=== PATIENT | female | born 1935 | race African-American/Black ===

== ENCOUNTER 2018-06-04 07:25 | Inpatient (IN) | payer OTHER, MEDICAID ==
[~2018-06-04] VITALS: Ht 167.6 cm; Wt 81.3 kg
[~2018-06-04 07:25] MED LIST: ACET-3 PO; ASPI81CH43 GT; ASPI81TA27 PO; ATOR20TA PO; CHOL20007 PO; DICL50TA4; LEV100T PO; LEVO75TA42 PO; LEVO88TA36 PO; NIFE90TA25 PO; NIFE90TA30 PO; OMEG500C; PROB1CAP PO; PROP60CA34 PO; PROP80CA40 PO; SIMV-8 PO
[2018-06-04 08:22] LABS: Urine Bacteria FEW /hpf (None Seen); Urine Blood Negative /uL (Negative); Urine Specific Gravity 1.006 (1.001-1.035); Urine WBC 2 /hpf (0 - 5)
[2018-06-04 08:24] LABS: Basophils # (auto) 0.2 uL; Eosinophils # (auto) 0.2 uL; Eosinophils % (auto) 2.9 % (0.0-7.0); Hematocrit 41.4 % (36.0-46.0); Hemoglobin 13.8 g/dL (12.2-16.2); Lymphocytes # (auto) 0.9 uL; Lymphocytes % (auto) 17.2 % (10.0-50.0); Mean Corpuscular Hemoglobin 29.7 pg (28.0-32.0); Mean Corpuscular Hgb Conc. 33.3 g/dL (32.0-36.0); Mean Corpuscular Volume 89.1 fL (80.0-100.0); Monocytes # (auto) 0.3 uL; Monocytes % (auto) 6.4 % (0.0-12.0); Neutrophils # (auto) 3.6 uL; Neutrophils % (auto) 69.5 % (37.0-80.0); Nucleated Red Blood Cells % 0.1 %; Platelet Count (auto) 191 10^3/uL (140-450); Red Blood Cells 4.65 10^6/uL (4.0-5.20); Red Cell Distribution Width 15.2 % (11.8-14.3); White Blood Cell 5.2 10^3/uL (4.4-10.8)
[2018-06-04] MEDS ORDERED: cloNIDine HCL 0.1 MG TAB PO ONE (08:30)
[2018-06-04 08:34] LABS: INR 0.91 (0.9-1.15); Partial Thromboplastin Time 33.6 sec (23.78-33.04); Prothrombin Time 9.8 sec (9.27-12.13)
[2018-06-04 08:39] LABS: Alanine Aminotransferase 19 U/L (13-56); Albumin 3.4 g/dL (3.4-5.0); Anion Gap 10 (5-15); Aspartate Aminotransferase 21 U/L (15-37); BUN/Creatinine Ratio 10.9; Blood Urea Nitrogen 12 mg/dL (7-18); Calcium 9.2 mg/dL (8.5-10.1); Carbon Dioxide 23 mmol/L (21-32); Chloride 107 mmol/L (98-107); GFR African American 61 mL/min; GFR Non-African American 51 mL/min; Glucose 117 mg/dL (74-106); Potassium 4.1 mmol/L (3.5-5.1); Sodium 140 mmol/L (136-145)
[2018-06-04 08:44] LABS: Alkaline Phosphatase 106 U/L (45-117); Bilirubin, Total 0.4 mg/dL (0.2-1.0); Total Protein 8.6 g/dL (6.4-8.2)
[2018-06-04] MEDS ORDERED: ACETAMINOPHEN 325 MG TAB PO PRN (10:15)
[2018-06-04] MEDS ORDERED: ASPirin-EC 81 mg tab PO ONE (10:15)
[2018-06-04] MEDS ORDERED: PROPRANOLOL HCL 20 MG TAB PO ONE (10:15)
[2018-06-04] MEDS ORDERED: NITROGLYCERIN 0.4 MG SL TAB SL PRN (10:15)
[2018-06-04] MEDS ORDERED: MORPHINE SULF INJ 2 MG/ML SYRINGE 1ML IV PRN ×2 (10:15)
[2018-06-04] MEDS ORDERED: DOCUSATE SOD 100 MG CAP PO PRN (10:15)
[2018-06-04] MEDS ORDERED: LEVOFLOXACIN 500MG 100 ML IV ONE (10:15)
[2018-06-04] MEDS ORDERED: NIFEdipine ER 30 MG TAB PO ONE (10:15)
[2018-06-04] MEDS ORDERED: DEXTROSE (50%) 50ML SYRG IV PRN (10:15)
[2018-06-04] MEDS ORDERED: OXYCODONE W/ ACETAMINOPHEN 5/325MG TABLET PO PRN (10:15)
[2018-06-04] MEDS ORDERED: cloNIDine HCL 0.1 MG TAB PO PRN (10:15)
[2018-06-04] MEDS: FAMOTIDINE 20 MG TAB PO SCH (10:33)
[2018-06-04] MEDS: ENOXAPARIN SOD 40 MG/0.4 ML SYRINGE SC SCH (10:34)
[2018-06-04] MEDS: SODIUM CHLOR 0.9% PF (SALINE LOCK) 10ML VIAL/SYR IV SCH ×2 (11:42→21:53)
[2018-06-04] MEDS: InsuLIN REG 1unit/0.01ml Soln (100units/ml) SC SCH ×3 (11:52→21:53)
[2018-06-04] MEDS: ACCU-CHEK COMFORT CURVE STRIP VI SCH ×3 (11:52→21:53)
[2018-06-04 17:20] VITALS: BP 121/67
[2018-06-04 19:27] LABS: Folate (Folic Acid) > 24.00 ng/mL (5.38-24)
[2018-06-04 20:00] VITALS: BP 142/74
[2018-06-04 21:26] VITALS: BP 142/74
[2018-06-04] MEDS: ATORVASTATIN 20 MG TAB PO SCH (21:53)
[2018-06-04] MEDS ORDERED: FAMOTIDINE 20 MG TAB PO SCH (22:00)
[2018-06-05 04:45] VITALS: BP 145/70
[2018-06-05] MEDS: SODIUM CHLOR 0.9% PF (SALINE LOCK) 10ML VIAL/SYR IV SCH ×3 (06:15→21:24)
[2018-06-05] MEDS: ACCU-CHEK COMFORT CURVE STRIP VI SCH ×3 (06:39→21:28)
[2018-06-05] MEDS: InsuLIN REG 1unit/0.01ml Soln (100units/ml) SC SCH ×3 (06:39→21:28)
[2018-06-05 06:59] LABS: Basophils # (auto) 0.1 uL; Basophils % (auto) 1.3 % (0.0-2.0); Eosinophils # (auto) 0.1 uL; Eosinophils % (auto) 2.5 % (0.0-7.0); Hematocrit 34.1 % (36.0-46.0); Hemoglobin 11.4 g/dL (12.2-16.2); Lymphocytes # (auto) 1.2 uL; Lymphocytes % (auto) 27.4 % (10.0-50.0); Mean Corpuscular Hemoglobin 29.4 pg (28.0-32.0); Mean Corpuscular Hgb Conc. 33.4 g/dL (32.0-36.0); Monocytes # (auto) 0.5 uL; Neutrophils # (auto) 2.6 uL; Neutrophils % (auto) 57.8 % (37.0-80.0); Nucleated Red Blood Cells % 0.1 %; Platelet Count (auto) 160 10^3/uL (140-450); Red Blood Cells 3.88 10^6/uL (4.0-5.20); Red Cell Distribution Width 15.1 % (11.8-14.3); White Blood Cell 4.5 10^3/uL (4.4-10.8)
[2018-06-05 07:18] LABS: Albumin 2.8 g/dL (3.4-5.0); BUN/Creatinine Ratio 10.8; Bilirubin, Total 0.4 mg/dL (0.2-1.0); Calcium 8.9 mg/dL (8.5-10.1); Potassium 3.8 mmol/L (3.5-5.1); Total Protein 6.8 g/dL (6.4-8.2)
[2018-06-05 08:38] VITALS: BP 133/69
[2018-06-05] MEDS: NIFEdipine ER 30 MG TAB PO SCH (10:00)
[2018-06-05] MEDS: ASPirin-EC 81 mg tab PO SCH (10:33)
[2018-06-05] MEDS: LEVOFLOXACIN 500MG 100 ML IV SCH (10:34)
[2018-06-05] MEDS: FAMOTIDINE 20 MG TAB PO SCH (10:34)
[2018-06-05] MEDS: PROPRANOLOL HCL 20 MG TAB PO SCH (10:34)
[2018-06-05] MEDS: MULTIPLE VITAMIN TAB PO SCH (10:34)
[2018-06-05] MEDS: ENOXAPARIN SOD 40 MG/0.4 ML SYRINGE SC SCH (10:35)
[2018-06-05 12:45] VITALS: BP 145/69
[2018-06-05 17:10] VITALS: BP 152/67
[2018-06-05] MEDS: ATORVASTATIN 20 MG TAB PO SCH (21:19)
[2018-06-05 21:45] VITALS: BP 134/69
[2018-06-05] MEDS ORDERED: TEMAZEPAM 15 MG CAP PO ONE (22:45)
[2018-06-06 04:52] VITALS: BP 144/79
[2018-06-06 05:59] LABS: Basophils # (auto) 0.1 uL; Basophils % (auto) 1.9 % (0.0-2.0); Eosinophils # (auto) 0.2 uL; Eosinophils % (auto) 4.1 % (0.0-7.0); Hematocrit 35.6 % (36.0-46.0); Hemoglobin 11.7 g/dL (12.2-16.2); Lymphocytes # (auto) 1.2 uL; Lymphocytes % (auto) 26.1 % (10.0-50.0); Mean Corpuscular Hemoglobin 28.8 pg (28.0-32.0); Mean Corpuscular Hgb Conc. 32.9 g/dL (32.0-36.0); Mean Corpuscular Volume 87.5 fL (80.0-100.0); Monocytes # (auto) 0.4 uL; Monocytes % (auto) 9.4 % (0.0-12.0); Neutrophils # (auto) 2.6 uL; Neutrophils % (auto) 58.5 % (37.0-80.0); Nucleated Red Blood Cells % 0.1 %; Platelet Count (auto) 171 10^3/uL (140-450); Red Blood Cells 4.06 10^6/uL (4.0-5.20); Red Cell Distribution Width 14.9 % (11.8-14.3); White Blood Cell 4.5 10^3/uL (4.4-10.8)
[2018-06-06 06:15] LABS: Calcium 9.5 mg/dL (8.5-10.1)
[2018-06-06 06:18] LABS: BUN/Creatinine Ratio 14.4
[2018-06-06] MEDS: ACCU-CHEK COMFORT CURVE STRIP VI SCH ×3 (06:39→18:22)
[2018-06-06] MEDS: InsuLIN REG 1unit/0.01ml Soln (100units/ml) SC SCH ×3 (06:39→11:30)
[2018-06-06] MEDS: SODIUM CHLOR 0.9% PF (SALINE LOCK) 10ML VIAL/SYR IV SCH ×2 (06:39→14:59)
[2018-06-06 08:09] VITALS: BP 149/70
[2018-06-06] MEDS: FAMOTIDINE 20 MG TAB PO SCH (10:00)
[2018-06-06] MEDS: PROPRANOLOL HCL 20 MG TAB PO SCH (10:00)
[2018-06-06] MEDS: LEVOFLOXACIN 500MG 100 ML IV SCH (10:07)
[2018-06-06] MEDS: ASPirin-EC 81 mg tab PO SCH (10:08)
[2018-06-06] MEDS: MULTIPLE VITAMIN TAB PO SCH (10:08)
[2018-06-06] MEDS: ENOXAPARIN SOD 40 MG/0.4 ML SYRINGE SC SCH (10:08)
[2018-06-06] MEDS: NIFEdipine ER 30 MG TAB PO SCH (10:09)
[2018-06-06 12:31] VITALS: BP 127/62
[2018-06-06 15:25] LABS: Alcohol, Urine < 3.0 mg/dL (0-5); Amphetamine Screen, Urine NEGATIVE (NEGATIVE); Barbiturate Scree,Urine NEGATIVE (NEGATIVE); Benzodiazephine Screen, Urine NEGATIVE (NEGATIVE); Cannabinoid Screen, Urine NEGATIVE (NEGATIVE); Cocaine Screen, Urine NEGATIVE (NEGATIVE); Opiate Scree,Urine NEGATIVE (NEGATIVE); Phencyclidine Screen, Urine NEGATIVE (NEGATIVE)
[2018-06-06 17:56] VITALS: BP 145/70
== END 2018-06-06 20:45 | disposition home or self-care (01) | DRG 64 ==
LOC: ER 07:25 → EDBD 07:25 → MERGE 07:26 → TELE 07:26 → TELE-WESTW 14:37
PROVIDERS: ADMIT Internal Medicine; ATTEND Internal Medicine
DX: I63.9 Cerebral infarction, unspecified (principal); G93.40 Encephalopathy, unspecified; N39.0 Urinary tract infection, site not specified; E44.0 Moderate protein-calorie malnutrition; G40.209 Localization-related (focal) (partial) symptomatic epilepsy and epileptic syndromes with complex partial seizures, not intractable, without status epilepticus; G44.209 Tension-type headache, unspecified, not intractable; I12.9 Hypertensive chronic kidney disease with stage 1 through stage 4 chronic kidney disease, or unspecified chronic kidney disease; E11.21 Type 2 diabetes mellitus with diabetic nephropathy; E03.9 Hypothyroidism, unspecified; E11.22 Type 2 diabetes mellitus with diabetic chronic kidney disease; E78.5 Hyperlipidemia, unspecified; M19.90 Unspecified osteoarthritis, unspecified site; I70.90 Unspecified atherosclerosis; E66.01 Morbid (severe) obesity due to excess calories; N18.2 Chronic kidney disease, stage 2 (mild); Z74.01 Bed confinement status; Z82.0 Family history of epilepsy and other diseases of the nervous system; Z88.0 Allergy status to penicillin; Z79.82 Long term (current) use of aspirin; Z79.899 Other long term (current) drug therapy; Z82.49 Family history of ischemic heart disease and other diseases of the circulatory system; Z83.3 Family history of diabetes mellitus; Z85.3 Personal history of malignant neoplasm of breast; Z90.11 Acquired absence of right breast and nipple; Z90.710 Acquired absence of both cervix and uterus; Z98.51 Tubal ligation status; Z68.28 Body mass index [BMI] 28.0-28.9, adult
CPT/HCPCS: 36415; 70450; 70551; 71045; 80048; 80053; 80307; 81001; 82607; 82746; 82962; 83036; 84443; 84484; 85025; 85610; 85730; 87086; 92610; 93005; 93306; 93886; 94761; 95819; 96374; 97163; J1815; J1956

== ENCOUNTER 2019-08-20 12:32 | Inpatient (IN) | payer OTHER, MEDICAID ==
[~2019-08-20] VITALS: Ht 170.2 cm; Wt 86.3 kg
[~2019-08-20 12:32] MED LIST changes: +ASPI-404 PO; -ASPI81TA27 PO
[2019-08-20] MEDS ORDERED: ASPirin 81 mg TAB PO ONE (13:15)
[2019-08-20] MEDS ORDERED: cloNIDine HCL 0.1 MG TAB PO ONE (13:15)
[2019-08-20 13:40] LABS: Basophils # (auto) 0.1 uL; Basophils % (auto) 1.2 % (0.0-2.0); Eosinophils # (auto) 0.2 uL; Eosinophils % (auto) 4.5 % (0.0-7.0); Hematocrit 40.3 % (36.0-46.0); Hemoglobin 13.2 g/dL (12.2-16.2); Lymphocytes % (auto) 20.6 % (10.0-50.0); Mean Corpuscular Hemoglobin 29.6 pg (28.0-32.0); Mean Corpuscular Hgb Conc. 32.8 g/dL (32.0-36.0); Mean Corpuscular Volume 90.2 fL (80.0-100.0); Monocytes # (auto) 0.5 uL; Monocytes % (auto) 11.3 % (0.0-12.0); Neutrophils % (auto) 62.4 % (37.0-80.0); Nucleated Red Blood Cells % 0.1 %; Platelet Count (auto) 151 10^3/uL (140-450); Red Blood Cells 4.47 10^6/uL (4.0-5.20); Red Cell Distribution Width 14.8 % (11.8-14.3); White Blood Cell 4.8 10^3/uL (4.4-10.8)
[2019-08-20 13:56] LABS: Alanine Aminotransferase 20 U/L (13-56); Albumin 3.5 g/dL (3.4-5.0); Anion Gap 6 (5-15); Aspartate Aminotransferase 19 U/L (15-37); BUN/Creatinine Ratio 16.2; Blood Urea Nitrogen 16 mg/dL (7-18); Calcium 9.3 mg/dL (8.5-10.1); Carbon Dioxide 25 mmol/L (21-32); Chloride 106 mmol/L (98-107); GFR African American 69 mL/min; GFR Non-African American 57 mL/min; Glucose 103 mg/dL (74-106); Magnesium 2.3 mg/dL (1.6-2.6); Potassium 4.1 mmol/L (3.5-5.1); Sodium 137 mmol/L (136-145)
[2019-08-20 14:01] LABS: Alkaline Phosphatase 99 U/L (45-117); Bilirubin, Total 0.9 mg/dL (0.2-1.0); Total Protein 7.9 g/dL (6.4-8.2)
[2019-08-20 14:34] LABS: Urine Bacteria FEW /hpf (None Seen); Urine Blood Negative /uL (Negative); Urine Specific Gravity 1.006 (1.001-1.035); Urine WBC <1 /hpf (0 - 5)
[2019-08-20] MEDS ORDERED: ONDANSETRON HCL 4 MG/2 ML VIAL IV PRN (17:15)
[2019-08-20] MEDS ORDERED: MORPHINE SULF INJ 2 MG/ML SYRINGE 1ML IV PRN ×2 (17:15)
[2019-08-20] MEDS ORDERED: HYDROcodone-ACET 5/325MG TAB PO PRN (17:15)
[2019-08-20] MEDS ORDERED: ACETAMINOPHEN 500 MG TAB PO PRN (17:15)
[2019-08-20] MEDS ORDERED: NITROGLYCERIN 0.4 MG SL TAB SL PRN (17:15)
[2019-08-20] MEDS: hydrALAZINE HCL 20 MG/ML VL IV PRN (17:35)
[2019-08-20 17:43] LABS: CRP High Sensitivity 0.31 mg/dL (< 0.3)
--- NOTE | 2019-08-20 18:33 | NUR ---
PT ADMITTED TO [facility] PER W/C ACCOMPANIED BY ER STAFF WITH DIAGNOSIS OF ACUTE CORONARY SYNDROME. PT NOTED TO BE AAOX4, PLEASANT AND COOPERATIVE AND VOICED NO C/O CHEST PAIN AND WAS IN NO DISTRESS. PT ORIENTATED TO STAFF, UNIT AND ROUTINE. DISCUSSED WITH PT PLAN OF CARE, MEDS, AND TREATMENTS AND PT VERBALIZED UNDERSTANDING. PHYSICAL ASSESSMENT DONE AND CHARTED. PT ON TELEMETRY WITH BOX#[id number]. WILL ENDORSE PT TO INCOMING RN.
--- NOTE | 2019-08-20 20:00 | NUR ---
open note assumed care of pt. upon entering room pt awake, alert and oriented x4. pt has multiple family at bedside. pt on room air with no distress noted or expressed. pt denies any pain at this time. pt and family updated on plan of care. all questions answered at this time. bed locked, low and 2x rails up. call light in reach, this nurse encouraged to call as needed. pt voiced understanding, this nurse will round q1hr and prn.
[2019-08-20 22:00] VITALS: BP 129/52
[2019-08-20] MEDS: METOPROLOL TARTRATE 25 MG TAB PO SCH (22:01)
[2019-08-20] MEDS: DOCUSATE SOD 100 MG CAP PO SCH (22:01)
[2019-08-20] MEDS: ATORVASTATIN 20 MG TAB PO SCH (22:01)
[2019-08-21 05:29] VITALS: BP 154/74
[2019-08-21] MEDS: hydrALAZINE HCL 20 MG/ML VL IV PRN (06:03)
[2019-08-21 06:37] LABS: Basophils # (auto) 0 uL; Basophils % (auto) 1.1 % (0.0-2.0); Eosinophils # (auto) 0.2 uL; Eosinophils % (auto) 4.3 % (0.0-7.0); Hematocrit 33.5 % (36.0-46.0); Hemoglobin 11.3 g/dL (12.2-16.2); Lymphocytes # (auto) 1.1 uL; Lymphocytes % (auto) 26.2 % (10.0-50.0); Mean Corpuscular Hgb Conc. 33.6 g/dL (32.0-36.0); Mean Corpuscular Volume 89.2 fL (80.0-100.0); Monocytes # (auto) 0.5 uL; Monocytes % (auto) 11.1 % (0.0-12.0); Neutrophils # (auto) 2.5 uL; Neutrophils % (auto) 57.3 % (37.0-80.0); Platelet Count (auto) 132 10^3/uL (140-450); Red Blood Cells 3.75 10^6/uL (4.0-5.20); Red Cell Distribution Width 14.8 % (11.8-14.3); White Blood Cell 4.4 10^3/uL (4.4-10.8)
[2019-08-21 06:45] LABS: INR 0.96 (0.9-1.15); Partial Thromboplastin Time 30.2 sec (23.64-32.05)
[2019-08-21 07:08] LABS: Potassium 4.2 mmol/L (3.5-5.1)
[2019-08-21 07:18] LABS: BUN/Creatinine Ratio 18.3; Calcium 9.2 mg/dL (8.5-10.1)
--- NOTE | 2019-08-21 07:30 | NUR ---
Opening Shift Note Assumed care of patient, awake and alert. No S/S of distress/SOB or pain. Instructed on POC and to call for assist PRN, will continue to monitor for changes Q1hr and PRN.
[2019-08-21 09:00] VITALS: BP 127/67
[2019-08-21] MEDS: METOPROLOL TARTRATE 25 MG TAB PO SCH ×2 (09:57→21:39)
[2019-08-21] MEDS: FAMOTIDINE 20 MG TAB PO SCH (09:57)
[2019-08-21] MEDS: ASPirin-EC 81 mg tab PO SCH (09:57)
[2019-08-21] MEDS: DOCUSATE SOD 100 MG CAP PO SCH ×2 (09:58→21:38)
[2019-08-21] MEDS ORDERED: LISINOPRIL 10 MG TAB PO SCH (10:00)
[2019-08-21 13:00] VITALS: BP 151/70
--- NOTE | 2019-08-21 16:27 | NUR ---
Dr. Wheeler in to see patient for cardiology. New orders received. Patient to have cardiolite stress test.
[2019-08-21] MEDS ORDERED: LISINOPRIL 10 MG TAB PO ONE (16:30)
[2019-08-21] MEDS: ATORVASTATIN 20 MG TAB PO SCH (21:38)
[2019-08-21 22:00] VITALS: BP 155/69
[2019-08-22 05:00] VITALS: BP 152/78
--- NOTE | 2019-08-22 06:15 | NUR ---
PATIENT ASKED TO SPEAK TO ME AND NOTIFIED ME THAT SHE DOES NOT WISH TO GO THROUGH WITH THE STRESS TEST TODAY.
[2019-08-22] MEDS: hydrALAZINE HCL 20 MG/ML VL IV PRN ×2 (06:21→07:00)
--- NOTE | 2019-08-22 07:49 | NUR ---
Opening Note Assume pt care from [facility] nurse. Pt is a/ox4 with no s/s of distress or SOB. Pt is currently sitting upright in bed with no complaints at this time except for a mild GARIBAY. Patient stated that she no longer wishes to follow through with the stress test today. She states she just "doesn't feel like it". Will notify NM. Discussed POC with pt; pt verbalized understanding. Safety measures maintained with call light within reach, bed in lowest position and side rail up. Will continue to monitor for changes. Addendum: 08/22/19 at 0753 by ELIE FIGUEROA RN RN Notified NM of patient's refusal; staff is aware.
[2019-08-22] MEDS: ASPirin-EC 81 mg tab PO SCH (09:27)
[2019-08-22] MEDS: DOCUSATE SOD 100 MG CAP PO SCH (09:28)
[2019-08-22] MEDS: METOPROLOL TARTRATE 25 MG TAB PO SCH (09:28)
[2019-08-22] MEDS: FAMOTIDINE 20 MG TAB PO SCH (09:28)
[2019-08-22 09:33] VITALS: BP 149/71
[2019-08-22] MEDS ORDERED: LISINOPRIL 20 MG TAB PO SCH (10:00)
--- NOTE | 2019-08-22 10:42 | NUR ---
Patient Ambulating W/O Difficulty Patient up and ambulating using walker. No s/s of distress or SOB. Will continue to monitor.
[2019-08-22] MEDS ORDERED: SODIUM CHLORIDE 0.9% 1,000 ML IV SCH (10:45)
--- NOTE | 2019-08-22 11:16 | NUR ---
Mail Clerk At Bedside for Echo
--- NOTE | 2019-08-22 12:25 | NUR ---
Dr Valle at Bedside Plans to d/c today. Plan is for pt to follow up with pt's PCP within one week as well as follow up with pt's State Manager, Dr Luna. New orders for Tylenol 1000mg PO once and Ibuprofen 400mg IV now. Will implement and follow through.
[2019-08-22] MEDS ORDERED: ACETAMINOPHEN 500 MG TAB PO ONE (12:30)
--- NOTE | 2019-08-22 15:40 | NUR ---
DR VILLALPANDO TO SEE PT MD CLEARED PT AND PLANS TO SEE PT OUTPATIENT.
[2019-08-22 16:31] VITALS: BP 149/71
--- NOTE | 2019-08-22 17:00 | NUR ---
Faxed D/C Summary to Medical Office Per MD office request, discharge summary/note to be faxed to office for follow up appointment. Faxed to [phone]
--- NOTE | 2019-08-22 17:11 | NUR ---
IV D/C'ed IV removed fully intact from L wrist/hand. Catheter was removed fully intact. Site is asymptomatic. Pressure applied to site for 3 minutes with gauze and then wrapped with cioban. Pt instructed to keep dressing on for 30 minutes; pt verbalized understanding.
--- NOTE | 2019-08-22 17:12 | NUR ---
Tele-Box Removed and Sent Back to ICU
[2019-08-22 17:15] VITALS: BP 159/81
--- NOTE | 2019-08-22 17:33 | NUR ---
Patient Discharged off Unit Pt d/c'ed off unit via wheelchair. Pt has all belongings, education material, prescriptions, and all questions were answered. IV and telebox was d/c'ed prior to d/c.
== END 2019-08-22 17:30 | disposition home or self-care (01) | DRG 305 ==
LOC: EDBD 12:32 → ER 12:41 → TELE 12:42 → TELE-EAST 18:45
PROVIDERS: ADMIT Nurse Practitioner Acute Care; ATTEND Internal Medicine
DX: I16.9 Hypertensive crisis, unspecified (principal); I24.9 Acute ischemic heart disease, unspecified; I12.9 Hypertensive chronic kidney disease with stage 1 through stage 4 chronic kidney disease, or unspecified chronic kidney disease; E66.9 Obesity, unspecified; C50.911 Malignant neoplasm of unspecified site of right female breast; N18.3 Chronic kidney disease, stage 3 (moderate); F41.9 Anxiety disorder, unspecified; M19.90 Unspecified osteoarthritis, unspecified site; E11.22 Type 2 diabetes mellitus with diabetic chronic kidney disease; Z85.3 Personal history of malignant neoplasm of breast; Z68.28 Body mass index [BMI] 28.0-28.9, adult; Z88.0 Allergy status to penicillin; Z88.5 Allergy status to narcotic agent; Z79.84 Long term (current) use of oral hypoglycemic drugs; Z80.6 Family history of leukemia; Z82.0 Family history of epilepsy and other diseases of the nervous system; Z82.49 Family history of ischemic heart disease and other diseases of the circulatory system; Z83.3 Family history of diabetes mellitus; Z90.11 Acquired absence of right breast and nipple; Z90.710 Acquired absence of both cervix and uterus; Z79.899 Other long term (current) drug therapy; Z98.51 Tubal ligation status
CPT/HCPCS: 36415; 71045; 80048; 80053; 80061; 81001; 83036; 83735; 83880; 84484; 85025; 85610; 85730; 86141; 93005; 93306; 94761; 96361; 96374; G0378

== ENCOUNTER 2019-11-19 16:11 | Emergency (ER) | payer OTHER, MEDICAID ==
[~2019-11-19] VITALS: Ht 165.1 cm; Wt 81.6 kg
[~2019-11-19 16:11] MED LIST changes: -ASPI81CH43 GT; -LEV100T PO; -LEVO75TA42 PO; -NIFE90TA25 PO; -NIFE90TA30 PO; -PROP80CA40 PO; -SIMV-8 PO
[2019-11-19 17:05] LABS: Basophils # (auto) 0.1 uL; Basophils % (auto) 1.4 % (0.0-2.0); Eosinophils # (auto) 0.2 uL; Eosinophils % (auto) 4.3 % (0.0-7.0); Hematocrit 41.2 % (36.0-46.0); Hemoglobin 13.6 g/dL (12.2-16.2); Lymphocytes # (auto) 0.9 uL; Lymphocytes % (auto) 19.9 % (10.0-50.0); Mean Corpuscular Hemoglobin 29.8 pg (28.0-32.0); Mean Corpuscular Volume 90.4 fL (80.0-100.0); Monocytes # (auto) 0.3 uL; Monocytes % (auto) 6.6 % (0.0-12.0); Neutrophils # (auto) 3.2 uL; Neutrophils % (auto) 67.8 % (37.0-80.0); Nucleated Red Blood Cells % 0.1 %; Platelet Count (auto) 166 10^3/uL (140-450); Red Blood Cells 4.56 10^6/uL (4.0-5.20); Red Cell Distribution Width 14.8 % (11.8-14.3); White Blood Cell 4.6 10^3/uL (4.4-10.8)
[2019-11-19 17:22] LABS: INR 0.96 (0.9-1.15); Partial Thromboplastin Time 32.8 sec (23.64-32.05)
[2019-11-19 17:23] LABS: Albumin 3.6 g/dL (3.4-5.0); Anion Gap 7 (5-15); Blood Urea Nitrogen 18 mg/dL (7-18); Calcium 9.5 mg/dL (8.5-10.1); Carbon Dioxide 23 mmol/L (21-32); Chloride 106 mmol/L (98-107); Glucose 88 mg/dL (74-106); Potassium 4.2 mmol/L (3.5-5.1); Sodium 136 mmol/L (136-145)
[2019-11-19 17:28] LABS: Alanine Aminotransferase 18 U/L (13-56); Alkaline Phosphatase 96 U/L (45-117); Aspartate Aminotransferase 18 U/L (15-37); BUN/Creatinine Ratio 15.3; Bilirubin, Total 0.5 mg/dL (0.2-1.0); GFR African American 57 mL/min; GFR Non-African American 47 mL/min; Total Protein 8.3 g/dL (6.4-8.2)
[2019-11-19] MEDS ORDERED: cloNIDine HCL 0.1 MG TAB PO ONE (19:30)
[2019-11-19 20:17] LABS: Urine Bacteria NONE SEEN /hpf (None Seen); Urine Blood Negative /uL (Negative); Urine Specific Gravity 1.005 (1.001-1.035); Urine WBC 1 /hpf (0 - 5)
[2019-11-19 20:29] LABS: Alcohol, Urine < 3.0 mg/dL (0-5); Amphetamine Screen, Urine NEGATIVE (NEGATIVE); Barbiturate Scree,Urine NEGATIVE (NEGATIVE); Benzodiazephine Screen, Urine NEGATIVE (NEGATIVE); Cannabinoid Screen, Urine NEGATIVE (NEGATIVE); Cocaine Screen, Urine NEGATIVE (NEGATIVE); Opiate Scree,Urine NEGATIVE (NEGATIVE); Phencyclidine Screen, Urine NEGATIVE (NEGATIVE)
[2019-11-19 22:05] VITALS: BP 110/50
== END 2019-11-19 23:17 | disposition home or self-care (01) ==
LOC: EDBD 16:11 → ER 16:11
DX: R55 Syncope and collapse (principal); G45.9 Transient cerebral ischemic attack, unspecified; R42 Dizziness and giddiness; I12.9 Hypertensive chronic kidney disease with stage 1 through stage 4 chronic kidney disease, or unspecified chronic kidney disease; N18.9 Chronic kidney disease, unspecified; E78.5 Hyperlipidemia, unspecified; Z90.710 Acquired absence of both cervix and uterus; Z98.51 Tubal ligation status
CPT/HCPCS: 36415; 70450; 71045; 80053; 80307; 81001; 83735; 84484; 85025; 85610; 85730; 93005

== ENCOUNTER 2020-07-18 01:28 | Emergency (ER) | payer OTHER, MEDICAID ==
[~2020-07-18] VITALS: Ht 172.7 cm; Wt 72.6 kg
[~2020-07-18 01:28] MED LIST changes: -ASPI-404 PO; +ASPI-543 PO
[2020-07-18 04:31] LABS: Urine Bacteria FEW /hpf (None Seen); Urine Blood Negative /uL (Negative); Urine Hyaline Cast FEW /lpf (0 - 2); Urine Mucus FEW (None Seen); Urine Specific Gravity 1.008 (1.001-1.035); Urine WBC 10 /hpf (0 - 5)
[2020-07-18 04:39] LABS: Alcohol, Urine < 3.0 mg/dL (0-10); Amphetamine Screen, Urine NEGATIVE (NEGATIVE); Barbiturate Scree,Urine NEGATIVE (NEGATIVE); Benzodiazephine Screen, Urine NEGATIVE (NEGATIVE); Cannabinoid Screen, Urine NEGATIVE (NEGATIVE); Cocaine Screen, Urine NEGATIVE (NEGATIVE); Opiate Scree,Urine NEGATIVE (NEGATIVE); Phencyclidine Screen, Urine NEGATIVE (NEGATIVE)
[2020-07-18 09:00] VITALS: BP 151/117
== END 2020-07-18 09:05 | disposition home or self-care (01) ==
LOC: EDBD 01:28 → ER 01:31
DX: R41.82 Altered mental status, unspecified (principal); R56.9 Unspecified convulsions
CPT/HCPCS: 70450; 71045; 80307; 81001; 93005; 96365; 99285; J1953; J7060